=== PATIENT | male | born 1985 | race Two or more races ===

== ENCOUNTER 2023-06-06 15:56 | Emergency (ER) | payer OTHER ==
[~2023-06-06] VITALS: Ht 170.2 cm; Wt 81.8 kg
[2023-06-06 17:30] VITALS: BP 153/98; PULSE 117; RESP 16; O2SAT 97
[2023-06-06 17:31] VITALS: TEMP 98.8
[2023-06-06] MEDS: cefTRIAXone SOD 1,000 MG VL IM ONE (17:31)
[2023-06-06] MEDS: ACETAMINOPHEN 500 MG TAB PO ONE (17:31)
[2023-06-06] MEDS ORDERED: IBUP-1454 PO (17:39)
[2023-06-06] MEDS ORDERED: AMOX875T3 PO (17:39)
== END 2023-06-06 17:58 | disposition home or self-care (01) ==
LOC: ER 15:56
DX: H66.92 Otitis media, unspecified, left ear (principal); J03.90 Acute tonsillitis, unspecified; I10 Essential (primary) hypertension; Z79.1 Long term (current) use of non-steroidal anti-inflammatories (NSAID); Z79.2 Long term (current) use of antibiotics
CPT/HCPCS: 96372; 99283; J0696